=== PATIENT | male | born 2000 | race Caucasian/White ===

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

== ENCOUNTER 2018-03-27 00:35 | Emergency (ER) | payer BC ==
[~2018-03-27] VITALS: Ht 175.3 cm; Wt 53.8 kg
[2018-03-27 00:39] VITALS: BP 145/78
[2018-03-27] MEDS ORDERED: LIDOCAINE-MPF 1%, 2ML INFIL ONE ×2 (01:00)
[2018-03-27] MEDS ORDERED: LIDOCAINE-MPF 1%, 2ML ONE (01:20)
[2018-03-27] MEDS ORDERED: BUPIVACAINE 0.25% ONE (01:21)
[2018-03-27] MEDS ORDERED: HYDROcodone/APAP 5/325 TABLET PO ONE (01:30)
[2018-03-27] MEDS ORDERED: HYDROcodone/APAP 5/325 TABLET ONE (01:37)
[2018-03-27] MEDS ORDERED: CLINDAMYCIN 300 MG CAPSULE PO ONE (02:00)
[2018-03-27] MEDS ORDERED: CLINDAMYCIN 300 MG CAPSULE ONE (02:17)
== END 2018-03-27 02:44 | disposition home or self-care (01) ==
LOC: ED 00:57
DX: K04.7 Periapical abscess without sinus (principal); F17.200 Nicotine dependence, unspecified, uncomplicated
CPT/HCPCS: 41800; 99283

== ENCOUNTER 2018-09-17 15:53 | Emergency (ER) | payer BC, OTHER ==
[~2018-09-17] VITALS: Ht 175.3 cm; Wt 50.7 kg
[2018-09-17 15:57] VITALS: BP 112/78
[2018-09-17] MEDS ORDERED: DEXAMETHASONE 4 MG TABLET ONE (16:30)
[2018-09-17] MEDS ORDERED: DEXAMETHASONE 4 MG TABLET PO ONE (16:30)
--- NOTE | 2018-09-17 17:12 | NUR ---
Patient/Caregiver given discharge instructions and they have confirmed that they understand the instructions. Patient ambulatory with steady gait.
== END 2018-09-17 17:13 | disposition home or self-care (01) ==
LOC: ED 16:32
DX: J03.81 Acute recurrent tonsillitis due to other specified organisms (principal); B97.89 Other viral agents as the cause of diseases classified elsewhere; F17.200 Nicotine dependence, unspecified, uncomplicated
CPT/HCPCS: 87081; 87880; 99283

== ENCOUNTER 2020-04-14 18:14 | Emergency (ER) | payer SELFPAY ==
[~2020-04-14] VITALS: Ht 175.3 cm; Wt 53.6 kg
[2020-04-14] MEDS ORDERED: DIPHENHYDRAMINE 25 MG CAPSULE ONE (19:43)
[2020-04-14] MEDS ORDERED: DEXAMETHASONE 4 MG TABLET ONE (19:43)
--- NOTE | 2020-04-14 19:54 | NUR ---
Pt called to triage and medicated per order.
[2020-04-14] MEDS ORDERED: DIPHENHYDRAMINE 25 MG CAPSULE PO ONE (20:00)
[2020-04-14] MEDS ORDERED: DEXAMETHASONE 4 MG TABLET PO ONE (20:00)
[2020-04-14] MEDS ORDERED: OMNIPAQUE 350 MG/ML, 100ML BOTTLE ONE (20:30)
[2020-04-14] MEDS ORDERED: HYDROcodone/APAP 5/325 TABLET PO ONE (20:30)
[2020-04-14] MEDS ORDERED: HYDROcodone/APAP 5/325 TABLET ONE (20:33)
--- NOTE | 2020-04-14 21:05 | NUR ---
PT RESTING IN [facility], AWARE OF POC, MEDICATED PER [facility], LABS DRAWN, AWAITING CT
[2020-04-14 21:14] LABS: BASOPHILS % (AUTO) 0 % (0-1); EOSINOPHILS % (AUTO) 0 % (1-7); LYMPHOCYTES % (AUTO) 6 % (22-44); MEAN CORPUSCULAR HEMOGLOBIN 31.5 pg (27.5-34.5); MEAN CORPUSCULAR HGB CONC 34.5 g/dL (33.2-36.2); MEAN PLATELET VOLUME 9.6 fL (7.4-10.4); MONOCYTES % (AUTO) 4 % (2-9); NEUTROPHILS % (AUTO) 90 % (42-75); PLATELET COUNT 172 x10^3/uL (130-400); RED BLOOD COUNT 4.96 x10^6/uL (4.38-5.82)
[2020-04-14 21:21] LABS: ALBUMIN 4.5 g/dL (3.4-5.0); ANION GAP 7 mmol/L (5-15); CALCIUM 9.7 mg/dL (8.5-10.1); CHLORIDE 106 mmol/L (98-107)
[2020-04-14 21:23] VITALS: BP 118/65
[2020-04-14 21:25] LABS: MD NO
--- NOTE | 2020-04-14 21:37 | NUR ---
PT TO CT
[2020-04-14] MEDS ORDERED: AMOXICILLIN/CLAV 875-125MG TABLET ONE (22:46)
--- NOTE | 2020-04-14 22:49 | NUR ---
PT AMA FORM SIGNED, PT UNDERSTANDS ALL RISKS ASSCIATED WITH DECISION TO LEAVE
[2020-04-14] MEDS ORDERED: AMOXICILLIN/CLAV 875-125MG TABLET PO ONE (23:00)
== END 2020-04-14 22:51 | disposition left against medical advice (07) ==
LOC: ED 22:21
DX: L02.01 Cutaneous abscess of face (principal)
CPT/HCPCS: 36415; 70487; 80048; 82040; 85025; 99285; Q0163; Q9967